=== PATIENT | male | born 1955 | race Caucasian/White ===

== ENCOUNTER → 2021-04-22 01:03 | Outpatient (CLI) | payer MEDICARE, SELFPAY ==
[2021-04-22 19:37] LABS: SARS-CoV-2 RNA PCR Negative
== END ==
PROVIDERS: PCP Internal Medicine; Visit Provider Internal Medicine Gastroenterology
DX: Z01.812 Encounter for preprocedural laboratory examination (principal); Z20.822 Contact with and (suspected) exposure to COVID-19
CPT/HCPCS: C9803; U0003; U0005

== ENCOUNTER 2021-04-25 01:19 | Day surgery (SDC) | payer MEDICARE, SELFPAY ==
[2021-03-23 11:46] VITALS: BMI 29.0
[2021-04-11 16:09] VITALS: BMI 30.9
[2021-04-25 06:53] VITALS: BP 128/100; PULSE 88; RESP 20; TEMP 36.2; O2SAT 98; BMI 30.1
[2021-04-25] MEDS: LACTATED RINGERS 1,000 ML 150 ML IV CONT (07:06)
--- NOTE | 2021-04-25 07:26 | WPDANESEPPF ---
Anes - Initial Pre Proc Eval Procedure: Operation Date: 04/25/21 08:00 Proposed Procedures p Screening Colonoscopy - Ean Moseley MD Date/Time: 04/25/21 07:26 Surgeon: Ean Moseley MD Pre Op Diagnosis: hx of Colon CA Patient Data Age: 65 Gender: M Height: 5 ft 10 in Weight: 95.3 kg Last Vital Signs Temp 97.1 F L 04/25/21 06:53 Pulse 88 04/25/21 06:53 Resp 20 04/25/21 06:53 BP 128/100 H 04/25/21 06:53 Pulse Ox 98 04/25/21 06:53 Allergies Allergy/AdvReac Type Severity Reaction Status Date / Time No Known Allergies Allergy Verified 04/25/21 06:50 Home Medications Medication Instructions Recorded Confirmed Type nebivolol 10 mg tablet 10 mg PO DAILY 90 Days #90 tablet 12/05/20 04/25/21 Rx Patient hx anesthesia problems: none Family hx anesthesia problems: none PMFSH Past Medical History Medical History (Updated 04/25/21 @ 07:22 by Arya Winn MD) Hypertensive heart disease without heart failure Sensorineural hearing loss Family History Family History (Updated 06/15/16 @ 23:19 by DOCTOR UNKNOWN) Sibling Family history of diabetes mellitus in first degree relative Social History Social History Smoking packs per day: 1 Smoking cigarettes per day: 20.0 Years smoked: 5 Smoking pack-years: 5.00 Smoking status: Former smoker Tobacco type: cigarettes Second hand tobacco smoke exposure: No Alcohol intake: never Substance use type: does not use Living arrangements: alone Gender identity (if verbalized by the patient): Male Sexual Orientation (if Verbalized by the Patient): Straight or Heterosexual Spiritual care concerns: No Anes - Eval Final PreProcedure Day of Procedure 04/25/21 07:26 Patient weight: obese Heart: regular rate and rhythm Lungs: clear to auscultation Airway: Mallampati scale class II Neurological: alert and oriented Last oral intake: >/= 8 hours ASA classification: III Emergent: no Anesthetic plan: proceed Anesthesia type and monitoring: general GIVS and standard monitoring Informed Consent: The patient's anesthetic plan and its attendant risks and benefits were discussed with the patient/family/POA. Questions were solicited and answers provided to the satisfaction of the patient/family/POA.
--- NOTE | 2021-04-25 07:48 | WPDGICN ---
Assessment and Plan Assessment and plan (1) History of colon cancer: Code(s): Z85.038 - Personal history of other malignant neoplasm of large intestine Status: Acute Assessment and Plan: Patient has a history of colon cancer resected 2013. Patient has had colon polyps in subsequent colonoscopy. His brother has been identified as having colon cancer as well. Plan is for surveillance colonoscopy now in at 3-4 year intervals in the future. High-fiber diet is advised. (2) Family history of malignant neoplasm of colon in first degree relative diagnosed when younger than 60 years of age: Code(s): Z80.0 - Family history of malignant neoplasm of digestive organs Status: Acute (3) History of colon polyps: Code(s): Z86.010 - Personal history of colonic polyps Status: Acute GI Consult Note Consult date/time: 04/25/21 07:48 HPI: Gomez Mera is a 65 year old male Presents for surveillance colonoscopy. Patient was found to have colon cancer in 2013. In 2018 follow-up colonoscopy showed colon polyps. Patient states that his current weight appetite bowel movements normal. He denies abdominal pain. He has had no bleeding. Family history is significant that his brother has had colon cancer. Review of Systems Review of Systems: All systems reviewed & are unremarkable except as noted in HPI and below PMFSH Past Medical History Medical History (Updated 04/25/21 @ 07:51 by Ean Moseley MD) Hypertensive heart disease without heart failure Sensorineural hearing loss Family History Family History (Updated 06/15/16 @ 23:19 by DOCTOR UNKNOWN) Sibling Family history of diabetes mellitus in first degree relative Social History Social History Smoking packs per day: 1 Smoking cigarettes per day: 20.0 Years smoked: 5 Smoking pack-years: 5.00 Smoking status: Former smoker Tobacco type: cigarettes Second hand tobacco smoke exposure: No Alcohol intake: never Substance use type: does not use Living arrangements: alone Gender identity (if verbalized by the patient): Male Sexual Orientation (if Verbalized by the Patient): Straight or Heterosexual Spiritual care concerns: No Meds Home Medications and Allergies Home Medications Medication Instructions Recorded Confirmed Type nebivolol 10 mg tablet 10 mg PO DAILY 90 Days #90 tablet 12/05/20 04/25/21 Rx Allergies Allergy/AdvReac Type Severity Reaction Status Date / Time No Known Allergies Allergy Verified 04/25/21 06:50 Vital Signs Vital Signs - 24 hr 04/25/21 06:53 Temperature 97.1 F L Pulse Rate 88 Respiratory Rate 20 Blood Pressure 128/100 H Pulse Oximetry 98 Exam Narrative: Exam Narrative: Physical exam reveals patient be alert. Vital signs stable. HEENT exam is unremarkable. Patient is anicteric. Lungs are clear to auscultation and percussion. Heart is without murmur or extra sounds. Abdominal exam bowel sounds are present soft nontender with no hepatosplenomegaly. Digital external rectal exam is normal.
[2021-04-25 08:20] VITALS: BP 112/82; PULSE 88; RESP 12; O2SAT 94
[2021-04-25 08:30] VITALS: BP 124/86; PULSE 84; RESP 19; O2SAT 97
[2021-04-25 08:40] VITALS: BP 131/88; PULSE 69; RESP 20; O2SAT 98
== END 2021-04-25 08:45 | disposition home or self-care (01) ==
PROVIDERS: PCP Internal Medicine; Visit Provider Internal Medicine Gastroenterology
PROC: 0DJD8ZZ Inspection of Lower Intestinal Tract, Via Natural or Artificial Opening Endoscopic (ICD-10-PCS; CPT 45378; principal; 2021-04-25 08:00)
DX: Z12.11 Encounter for screening for malignant neoplasm of colon (principal); Z80.0 Family history of malignant neoplasm of digestive organs; Z86.010 Personal history of colon polyps; Z85.038 Personal history of other malignant neoplasm of large intestine; Z87.891 Personal history of nicotine dependence; I10 Essential (primary) hypertension; E66.9 Obesity, unspecified; Z68.30 Body mass index [BMI] 30.0-30.9, adult; Z98.0 Intestinal bypass and anastomosis status; K64.8 Other hemorrhoids
CPT/HCPCS: G0105; J2704; J7120

== ENCOUNTER 2023-08-20 14:05 | Outpatient (CLI) | payer MEDICARE, SELFPAY ==
[2023-08-20 14:18] LABS: Basophils Absolute Auto 0.1 K/mm3 (0.0-0.1); Basophils Percent Auto 0.7 % (0.2-1.2); Eosinophils Absolute Auto 0.1 K/mm3 (0-0.3); Eosinophils Percent Auto 0.9 % (0-4.4); Hematocrit 50.9 % (42.0-52.0); Hemoglobin 17.8 g/dL (14.0-18.0); Immature Granulocyte Absolute 0.06 K/mm3 (0.00-0.031); Immature Granulocyte Percent A 0.6 % (0-0.5); Lymphocytes Absolute Auto 3.22 K/mm3 (0.9-3.2); Lymphocytes Percent Auto 30.4 % (18.3-44.2); Mean Corpuscular Hemoglobin 29.6 pg (26-34); Mean Corpuscular Volume 84.6 fl (80-100); Mean Platelet Volume 9.1 fl (7.4-10.4); Monocytes Absolute Auto 0.8 K/mm3 (0.1-0.6); Monocytes Percent Auto 7.2 % (2.6-8.5); Neutrophils Absolute Auto 6.4 K/mm3 (1.3-6.7); Neutrophils Percent Auto 60.2 % (45.5-73.1); Platelet Count Result 182 k/mm3 (150-375); Red Blood Count 6.02 M/mm3 (4.6-6.20); Red Cell Distribution Width 12.7 % (11.5-14.5); White Blood Count 10.6 K/mm3 (4.5-10.0)
== END 2023-08-20 14:06 | disposition home or self-care (01) ==
PROVIDERS: PCP Family Medicine; Visit Provider Internal Medicine Hematology & Oncology
DX: D45 Polycythemia vera (principal)
CPT/HCPCS: 36415; 85025

== ENCOUNTER 2024-02-20 07:29 | Outpatient (NON) | payer MEDICARE, SELFPAY | END 2024-02-20 07:30 | disposition home or self-care (01) | PROVIDERS: PCP Family Medicine; Visit Provider Internal Medicine Gastroenterology | DX: Z86.010 Personal history of colon polyps (principal) | CPT/HCPCS: 88305 ==

== ENCOUNTER 2024-02-20 10:11 | Day surgery (SDC) | payer MEDICARE, SELFPAY ==
[2024-02-07 12:07] VITALS: BMI 32.1
[2024-02-20 10:48] VITALS: BP 150/92; PULSE 77; RESP 14; TEMP 37.1; O2SAT 100
[2024-02-20] MEDS: LACTATED RINGERS 1,000 ML 150 ML IV CONT (10:59)
--- NOTE | 2024-02-20 11:06 | WPDHPUPDATE1 ---
History and Physical Update Update Date/Time: 02/20/24 11:06 Patient reports history of perianal cyst which was drained many years ago. Now has begun to drain with small amount of fluid and blood noted. Does have a history of subtotal colectomy with history of 2 colon cancers resected in 2012. Colonoscopy requested for screening follow-up also to evaluate blood noted in stool. History and Physical has been reviewed, including an updated exam of the patient. There are NO changes in the patient's condition. Risks, benefits, and alternatives have been discussed and questions answered. Patient agrees to proceed with procedure.
--- NOTE | 2024-02-20 11:11 | WPDANESEPPF ---
Anes - Initial Pre Proc Eval Procedure: Operation Date: 02/20/24 12:00 Proposed Procedures p Diagnostic Colonoscopy - Ean Moseley MD Date/Time: 02/20/24 11:11 Surgeon: Ean Moseley MD Pre Op Diagnosis: Melena,hx of other malignant neoplasm of large Patient Data Age: 68 Gender: M Height: 1.75 m Weight: 95.7 kg Last Vital Signs Temp 37.1 C 02/20/24 10:48 Pulse 77 02/20/24 10:48 Resp 14 02/20/24 10:48 BP 150/92 H 02/20/24 10:48 Pulse Ox 100 02/20/24 10:48 O2 Del Method Room Air 02/20/24 10:48 Allergies Allergy/AdvReac Type Severity Reaction Status Date / Time No Known Allergies Allergy Verified 02/20/24 10:46 Home Medications Medication Instructions Recorded Confirmed Type aspirin 81 mg tablet,delayed 81 mg PO DAILY 06/27/22 02/20/24 History release cholecalciferol (vitamin D3) 125 125 mcg PO DAILY 06/27/22 02/20/24 History mcg (5,000 unit) tablet (Vitamin D3) nebivolol 10 mg tablet See Rx Instructions .Route 09/25/23 02/20/24 Rx .COMPLEX #90 tabs lisinopril 5 mg tablet 5 mg PO DAILY #90 tabs 11/25/23 02/20/24 Rx sodium,potassium,mag sulfates 17.5 See Rx Instructions PO .COMPLEX 02/07/24 02/10/24 Rx gram-3.13 gram-1.6 gram oral soln #354 mL (Suprep Bowel Prep Kit) Patient hx anesthesia problems: none Family hx anesthesia problems: none Results Review: All pre-operative results and documents have been reviewed as part of the pre-operative evaluation. [facility] Past Medical History Medical History Blood in stool BPH (benign prostatic hyperplasia) Hypertension Hypertensive heart disease without heart failure Infected cyst of right shoulder Internal hemorrhoid Sensorineural hearing loss Surgical History Surgical History H/O colonoscopy 03/2021 History of colon resection Family History Family History Sibling Family history of diabetes mellitus in first degree relative Social History Social History Smoking packs per day: 1 Smoking cigarettes per day: 20.0 Years smoked: 5 Smoking pack-years: 5.00 Smoking status: Former smoker Tobacco type: cigarettes Second hand tobacco smoke exposure: No Alcohol intake: current Drinks per week: 3 Alcohol use details: beer Substance use: never Substance use type: does not use Do You Feel Safe in your Home?: Yes Lack of Transportation: No Lack of Food: Never True Current Housing: I Have Housing Concerned About Future Housing: No Difficulty Paying Gas/Electric Bills: No Difficulty Paying for Meds: No Currently Unemployed: No Education: Don't Know Difficulty w/ Childcare or Family Care: No Living arrangements: with family Occupation/Education: retired Gender identity (if verbalized by the patient): Male Sexual Orientation (if Verbalized by the Patient): Straight or Heterosexual Spiritual care concerns: No Agree to blood products: Yes Anes - Eval Final PreProcedure Day of Procedure 02/20/24 11:11 Patient weight: obese Heart: regular rate and rhythm Lungs: clear to auscultation Airway: Mallampati scale class II Neurological: alert and oriented Last oral intake: >/= 8 hours ASA classification: III Emergent: no Anesthetic plan: proceed Anesthesia type and monitoring: general GIVS and standard monitoring Results Review: All pre-operative results and documents have been reviewed as part of the pre-operative evaluation. Informed Consent: The patient's anesthetic plan and its attendant risks and benefits were discussed with the patient/family/POA. Questions were solicited and answers provided to the satisfaction of the patient/family/POA.
[2024-02-20 11:31] VITALS: BP 110/78; PULSE 80; RESP 16; O2SAT 96
--- NOTE | 2024-02-20 11:37 | WPDANESPN ---
Anes - Prog Note Post-Op Date/Time: 02/20/24 11:37 Cardiovascular status: normal Respiratory status: normal Airway patency: baseline Mental status: baseline Post-Op hydration status: normal Vital Signs: Last Vital Signs Temp 37.1 C 02/20/24 10:48 Pulse 77 02/20/24 10:48 Resp 14 02/20/24 10:48 BP 150/92 H 02/20/24 10:48 Pulse Ox 100 02/20/24 10:48 O2 Del Method Room Air 02/20/24 10:48 Pain Score (VAS): 0 I/O: Intake & Output 02/19/24 02/20/24 02/20/24 23:59 07:59 15:59 Intake Total 0 Balance 0 Patient Feedback: Patient satisfied with anesthetic care.
[2024-02-20 11:41] VITALS: BP 121/80; PULSE 77; RESP 20; O2SAT 97
[2024-02-20 11:51] VITALS: BP 137/87; PULSE 72; RESP 20; O2SAT 98
== END 2024-02-20 12:08 | disposition home or self-care (01) ==
PROVIDERS: PCP Family Medicine; Visit Provider Internal Medicine Gastroenterology
PROC: 0DJD8ZZ Inspection of Lower Intestinal Tract, Via Natural or Artificial Opening Endoscopic (ICD-10-PCS; CPT 45378; principal; 2024-02-20 12:00)
DX: D12.5 Benign neoplasm of sigmoid colon (principal); K63.89 Other specified diseases of intestine; K64.8 Other hemorrhoids
CPT/HCPCS: 45385